=== PATIENT | female | born 1960 | race Caucasian/White ===

== ENCOUNTER 2020-02-03 17:52 | Inpatient (IN) | payer MEDICARE, OTHER, SELFPAY ==
[2020-02-03] VITALS (10 sets, daily range): BP systolic 104–158; BP diastolic 60–76; PULSE 68–103; RESP 14–31; TEMP 36.6–37.4; O2SAT 37–97; BMI 54.9
--- NOTE | 2020-02-03 17:52 | XRR_ITS ---
PROCEDURE INFORMATION: Exam: XR Chest, 1 View Exam date and time: 02/03/2020 5:54 PM Age: 59 years old Clinical indication: Patient HX: PT came in severe dyspnea; Additional info: Dyspnea, hypoxia TECHNIQUE: Imaging protocol: XR of the chest Views: 1 view. COMPARISON: No relevant prior studies available. FINDINGS: Lungs: Bilateral diffuse interstitial lung disease with evidence of early consolidation in the left lung base with associated central pulmonary hyperemia. Findings most consistent with pulmonary edema although underlying interstitial pneumonitis/pneumonia remains a differential consideration. Pleural space: Unremarkable. No radiographically visible pleural effusion. No pneumothorax. Heart/Mediastinum: Cardiomegaly. Arteriosclerosis. Bones/joints: Unremarkable as visualized. Other findings: Obesity. XR/XR chest 1V portable [id number] IMPRESSION: 1. Findings most consistent with pulmonary edema although underlying interstitial pneumonitis/pneumonia remains a differential consideration. 2. Cardiomegaly. 3. Arteriosclerosis.
--- NOTE | 2020-02-03 17:53 | ECG_ITS ---
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 Measurements Intervals [place] Rate: 131 P: 65 AL: 132 QRS: 112 QRSD: 102 T: 27 QT: 373 QTc: 551 Interpretive Statements SINUS TACHYCARDIA WITH FREQUENT VENTRICULAR PREMATURE COMPLEXES INCOMPLETE RIGHT BUNDLE BRANCH BLOCK SEPTAL MYOCARDIAL INFARCTION [40+ ms Q WAVE IN V1/V2], OF INDETERMINATE AGE No previous ECG available for comparison Electronically Signed On 02-03-2020 23:31:05 CDT by Nori Ireland M.D. [email or web address]
--- NOTE | 2020-02-03 17:58 | W.ED.SOB ---
HPI - SOB/Dyspnea General: Chief Complaint: Shortness of Breath/Dyspnea Stated Complaint: respiratory distress Time Seen by Provider: 02/03/20 17:52 Source: patient Mode of arrival: wheelchair Limitations: physical limitation (Respiratory distress) History of Present Illness: HPI Narrative: Nuha is a 59-year-old female who comes in with severe respiratory distress. She is noted to be 37% pulse ox on room air oxygen. She had labored breathing. She was immediately brought back to the room and placed on a nonrebreather then quickly converted to a BiPAP. History that I could obtain was that the patient felt she became sick today with what she thought was allergies. She does have COPD and normally wears 3 L of nasal cannula oxygen. All further history is taken from family and old charts. Review of Systems General: Reports: ROS unobtainable due to medical condition PFS ED PFSH: Medical History (Updated 02/03/20 @ 22:50 by Blossom Barahona) COPD (chronic obstructive pulmonary disease) Nocturnal hypoxemia Sleep apnea Type 2 diabetes mellitus Surgical History (Updated 02/03/20 @ 21:27 by Germaine Davies MD) History of cholecystectomy Family History (Updated 02/03/20 @ 21:27 by Germaine Davies MD) Other No significant family history Social History (Updated 02/03/20 @ 21:28 by Germaine Davies MD) Smoking and tobacco status: never smoked Alcohol intake: never Substance/Drug Use: current Substance/Drug use frequency: few times a month Substance/Drug use type: Marijuana Household members: family Housing: House Physical Exam Const: COMMON NORMALS: patient oriented x3 and alert GENERAL APPEARANCE: in distress, anxious and ill appearing NUTRITIONAL APPEARANCE: overweight HENMT: COMMON NORMALS: normocephalic, atraumatic, external ears normal, EAC's normal and Normal external nose present HEAD & SCALP: normal to inspection, normocephalic and atraumatic FACE & SINUS: normal facial exam and face symmetric NOSE: Normal external nose present and Normal nares present EXTERNAL EAR: Yes external ears normal EXTERNAL AUDITORY CANAL: EAC's normal MOUTH: Normal oral and palatal mucosa present, lip normal and tongue normal Eye: COMMON NORMALS: Equal, round and reactive pupils present and conjunctivae normal GENERAL EYE: appearance normal, both eyes and all related structures ALIGNMENT: Yes alignment normal PERIORBITAL: periorbital findings normal EYELID: eyelids normal CONJUNCTIVA: Yes conjunctivae normal SCLERA: sclerae normal PUPIL: Yes Equal, round and reactive pupils present Neck/C-Spine: COMMON NORMALS: full ROM, no lymphadenopathy, supple, no meningeal signs and no JVD GENERAL: Yes normal visual inspection and Yes trachea midline Chest: COMMONS NORMALS: normal inspection of the chest and normal palpation of entire chest wall Resp: EFFORT & INSPECTION: Yes labored, Yes grunting, Yes uses accessory muscles and Yes paradoxical thoraco-abdominal movements AUSCULTATION: rales and wheezes Cardio: COMMON NORMALS: no JVD, regular rate, regular rhythm, S1 normal heart sound present and S2 normal heart sound present RATE: regular rate RHYTHM: regular rhythm HEART SOUNDS: S1 normal heart sound present, S2 normal heart sound present, no click, no gallops, no murmurs and no rubs GI: COMMON NORMALS: Soft to palpation and No hepatosplenomegaly present PALPATION: Yes Soft to palpation, No Tenderness to palpation present (GI), No Guarding due to palpation present (GI), No Rigid due to palpation, Yes No hepatosplenomegaly present, No Hernia present, No Palpable mass present and No Pulsatile mass present : COMMON NORMALS: Yes no CVA tenderness BLADDER/KIDNEY EXAM: Yes no CVA tenderness EXTERNAL FEMALE EXAM: No Hernia present Back/Pelvis: COMMON NORMALS: no CVA tenderness, thoracic and lumbar spine normal to inspection, no thoracic nor lumbar tenderness and thoraco-lumbar ROM normal Extremity: COMMON NORMALS: normal to inspection, full ROM, capillary refill normal, no joint enlargement, no clubbing, cyanosis or edema and no calf tenderness Neuro: COMMON NORMALS: patient oriented x3, CN's II-XII intact bilaterally, moves all extremities, no focal motor deficits and no sensory deficits noted SENSORIUM/ORIENTATION: Yes alert MENINGEAL SIGNS: Yes no meningeal signs SPEECH: speech normal Skin: COMMON NORMALS: no rashes or lesions noted, turgor normal, no jaundice, no petechiae and no mottling GENERAL SKIN EXAM: no rashes or lesions noted and turgor normal Procedures Intubation Time out performed: Yes sedative: Etomidate Mg Given: 47 paralytic: Succinylcholine Mg Given: 247 Laryngoscope: fiber optic video scope ET Tube Size: 8 ET Tube Uncuffed: Yes Tube Secured Depth (cm): 24 Tube Secured Location: lips Tube Placement Confirmation: visualized tube passing through cords, equal breath sounds bilaterally, no breath sounds over epigastrium and confirmation by capnometry Patient Tolerated Procedure: well Intubation Complications: none Course Vital Signs: Vital signs: Vital Signs Temperature 97.8 F 02/03/20 17:55 Pulse Rate 77 02/03/20 22:44 Respiratory Rate 17 02/03/20 22:44 Blood Pressure 104/62 02/03/20 22:44 Pulse Oximetry 87 L 02/03/20 22:44 MDM - SOB/Dyspnea MDM Narrative: Medical decision making narrative: Patient began to tire on BiPAP. After consulting with Dr. Davies he agreed the patient would need to be intubated. She was intubated successfully and her ventilator is being run by Dr. Davies. Patient tolerated procedure well with no complications. She will be admitted to our viral ICU. Lab Data: Attestation: I reviewed the patient's lab results. Labs: Lab Results 02/03/20 02/03/20 02/03/20 Range/Units 17:50 17:53 17:53 WBC 9.9 (4.0-10.0) 10^3/ uL RBC 5.05 (4.1-5.3) 10^6/u L Hgb 13.0 (11.5-15.3) g/dL Hct 45.4 (37.0-47.0) % MCV 89.9 (81-99) fL MCH 25.7 L (28.0-34.0) pg MCHC 28.6 L (30.0-36.0) g/dL RDW 18.5 H (12.1-15.1) % Plt Count 257 (130-400) 10^3/c mm MPV 11.3 H (7.4-10.4) fL Neut % (Auto) 80.0 % Lymph % (Auto) 12.2 % [place] % (Auto) 6.9 % Eos % (Auto) 0.1 % Baso % (Auto) 0.1 % Neut # (Auto) 7.94 H (1.8-7.7) 10^3/u L Lymph # (Auto) 1.2 (0.8-4.8) 10^3/u L [place] # (Auto) 0.7 (0.2-0.9) 10^3/u L Eos # (Auto) 0.0 (0.0-0.8) 10^3/u L Baso # (Auto) 0.0 (0.0-0.1) 10^3/u L Nucleated RBC % (a uto) 0 % Nucleated RBCs # 0.0 /100WBC PT 12.60 (12.1-14.9) SECO NDS INR 0.91 (0.8-1.2) D-Dimer 3.96 H (0-0.59) ug/mIFE U Specimen Type Arterial Sample Site Radial, right ABG pH 7.28 L (7.35-7.45) ABG pCO2 45.6 H (35-45) mmHg ABG pO2 55.5 L (80.0-100.0) mmH g ABG HCO3 21.4 L (22-26) mmol/L ABG O2 Saturation 83.7 ABG Base Excess -5.4 L (-2.0-2.0) mmol/ L Francisco Javier Test Pos A-a O2 Gradient 78.9 H (5-10) mmHg Hematocrit 41.7 (37-47) % Hgb O2 Saturation 82.5 L (95-100) % Carboxyhemoglobin 0.7 (0.4-20.1) %THgb Methemoglobin 0.7 (0.4-1.5) % Total Hemoglobin 13.6 (12-16) g/dL Sodium 141.0 (131-143) mmol/L Potassium 4.9 (3.5-5.0) mmol/L Glucose 321.0 H (70-115) mg/dL Ionized Calcium 1.1 (1.1-1.4) mmol/L O2 Delivery Device Nrb FiO2 100.0 % Laboratory Specialist ID jmn Chloride (98-107) mmol/L Carbon Dioxide (22-29) mmol/L Anion Gap (5-19) BUN (8-23) mg/dL Creatinine (0.5-0.9) mg/dL GFR Calculation (90-130) mL/min Calculated Osmolal ity (285-295) mOsm/k g Lactic Acid (0.5-2.2) mmol/L Lactic Acid (Sepsi s) (0.5-2.2) mmol/L Calcium (8.5-10.5) mg/dL Magnesium (1.7-2.3) mg/dL Total Bilirubin (0.15-1.2) mg/dL AST (0-32) U/L ALT (0-33) U/L Alkaline Phosphata se (35-105) IU/L Troponin T Baselin e (0-10) ng/L Troponin T 120 Min [place] (0-10) ng/L Delta Troponin T (0-10) ABS# NT-Pro-B Natriuret Pep (0-125) pg/mL Total Protein (6.6-8.7) g/dL Albumin (3.5-5.2) g/dL Globulin (1.3-4.6) g/dL Procalcitonin (0-0.5) ng/mL Urine Color (Yellow) Urine Appearance (CLEAR) Urine pH (5-7) Ur Specific Gravit y (1.005-1.030) Urine Protein (Negative) Urine Glucose (UA) (Normal) Urine Ketones (Negative) Urine Blood (Negative) Urine Nitrate (Negative) Urine Bilirubin (Negative) Urine Urobilinogen (Negative) mg/dL Ur Leukocyte Radha ase (Negative) Urine RBC (0-2) /hpf Urine WBC (0-5) /hpf Ur Squamous Epith Cells (0-5) /hpf Amorphous Sediment /hpf Urine Bacteria (NONE) /hpf Influenza Type A A g (Negative) Influenza Type B A g (Negative) SARS-CoV-2 Ag (Rap id) (Negative) 02/03/20 02/03/20 02/03/20 Range/Units 17:53 17:53 17:53 WBC (4.0-10.0) 10^3/ uL RBC (4.1-5.3) 10^6/u L Hgb (11.5-15.3) g/dL Hct (37.0-47.0) % MCV (81-99) fL MCH (28.0-34.0) pg MCHC (30.0-36.0) g/dL RDW (12.1-15.1) % Plt Count (130-400) 10^3/c mm MPV (7.4-10.4) fL Neut % (Auto) % Lymph % (Auto) % [place] % (Auto) % Eos % (Auto) % Baso % (Auto) % Neut # (Auto) (1.8-7.7) 10^3/u L Lymph # (Auto) (0.8-4.8) 10^3/u L [place] # (Auto) (0.2-0.9) 10^3/u L Eos # (Auto) (0.0-0.8) 10^3/u L Baso # (Auto) (0.0-0.1) 10^3/u L Nucleated RBC % (a uto) % Nucleated RBCs # /100WBC PT (12.1-14.9) SECO NDS INR (0.8-1.2) D-Dimer (0-0.59) ug/mIFE U Specimen Type Sample Site ABG pH (7.35-7.45) ABG pCO2 (35-45) mmHg ABG pO2 (80.0-100.0) mmH g ABG HCO3 (22-26) mmol/L ABG O2 Saturation ABG Base Excess (-2.0-2.0) mmol/ L Francisco Javier Test A-a O2 Gradient (5-10) mmHg Hematocrit (37-47) % Hgb O2 Saturation (95-100) % Carboxyhemoglobin (0.4-20.1) %THgb Methemoglobin (0.4-1.5) % Total Hemoglobin (12-16) g/dL Sodium 136 (131-143) mmol/L Potassium 5.2 H (3.5-5.0) mmol/L Glucose 333 H (70-115) mg/dL Ionized Calcium (1.1-1.4) mmol/L O2 Delivery Device FiO2 % Laboratory Specialist ID Chloride 98 (98-107) mmol/L Carbon Dioxide 22 (22-29) mmol/L Anion Gap 21.2 H (5-19) BUN 53 H (8-23) mg/dL Creatinine 2.1 H (0.5-0.9) mg/dL GFR Calculation 23.9 L (90-130) mL/min Calculated Osmolal ity 309 H (285-295) mOsm/k g Lactic Acid 6.2 H* (0.5-2.2) mmol/L Lactic Acid (Sepsi s) (0.5-2.2) mmol/L Calcium 8.6 (8.5-10.5) mg/dL Magnesium 2.3 (1.7-2.3) mg/dL Total Bilirubin 0.2 (0.15-1.2) mg/dL AST 48 H (0-32) U/L ALT 35 H (0-33) U/L Alkaline Phosphata se 85 (35-105) IU/L Troponin T Baselin e 19 H (0-10) ng/L Troponin T 120 Min [place] (0-10) ng/L Delta Troponin T (0-10) ABS# NT-Pro-B Natriuret Pep 383 H (0-125) pg/mL Total Protein 7.4 (6.6-8.7) g/dL Albumin 3.4 L (3.5-5.2) g/dL Globulin 4.0 (1.3-4.6) g/dL Procalcitonin (0-0.5) ng/mL Urine Color (Yellow) Urine Appearance (CLEAR) Urine pH (5-7) Ur Specific Gravit y (1.005-1.030) Urine Protein (Negative) Urine Glucose (UA) (Normal) Urine Ketones (Negative) Urine Blood (Negative) Urine Nitrate (Negative) Urine Bilirubin (Negative) Urine Urobilinogen (Negative) mg/dL Ur Leukocyte Radha ase (Negative) Urine RBC (0-2) /hpf Urine WBC (0-5) /hpf Ur Squamous Epith Cells (0-5) /hpf Amorphous Sediment /hpf Urine Bacteria (NONE) /hpf Influenza Type A A g (Negative) Influenza Type B A g (Negative) SARS-CoV-2 Ag (Rap id) (Negative) 02/03/20 02/03/20 02/03/20 Range/Units 17:53 18:56 18:56 WBC (4.0-10.0) 10^3/ uL RBC (4.1-5.3) 10^6/u L Hgb (11.5-15.3) g/dL Hct (37.0-47.0) % MCV (81-99) fL MCH (28.0-34.0) pg MCHC (30.0-36.0) g/dL RDW (12.1-15.1) % Plt Count (130-400) 10^3/c mm MPV (7.4-10.4) fL Neut % (Auto) % Lymph % (Auto) % [place] % (Auto) % Eos % (Auto) % Baso % (Auto) % Neut # (Auto) (1.8-7.7) 10^3/u L Lymph # (Auto) (0.8-4.8) 10^3/u L [place] # (Auto) (0.2-0.9) 10^3/u L Eos # (Auto) (0.0-0.8) 10^3/u L Baso # (Auto) (0.0-0.1) 10^3/u L Nucleated RBC % (a uto) % Nucleated RBCs # /100WBC PT (12.1-14.9) SECO NDS INR (0.8-1.2) D-Dimer (0-0.59) ug/mIFE U Specimen Type Sample Site ABG pH (7.35-7.45) ABG pCO2 (35-45) mmHg ABG pO2 (80.0-100.0) mmH g ABG HCO3 (22-26) mmol/L ABG O2 Saturation ABG Base Excess (-2.0-2.0) mmol/ L Francisco Javier Test A-a O2 Gradient (5-10) mmHg Hematocrit (37-47) % Hgb O2 Saturation (95-100) % Carboxyhemoglobin (0.4-20.1) %THgb Methemoglobin (0.4-1.5) % Total Hemoglobin (12-16) g/dL Sodium (131-143) mmol/L Potassium (3.5-5.0) mmol/L Glucose (70-115) mg/dL Ionized Calcium (1.1-1.4) mmol/L O2 Delivery Device FiO2 % Laboratory Specialist ID Chloride (98-107) mmol/L Carbon Dioxide (22-29) mmol/L Anion Gap (5-19) BUN (8-23) mg/dL Creatinine (0.5-0.9) mg/dL GFR Calculation (90-130) mL/min Calculated Osmolal ity (285-295) mOsm/k g Lactic Acid (0.5-2.2) mmol/L Lactic Acid (Sepsi s) (0.5-2.2) mmol/L Calcium (8.5-10.5) mg/dL Magnesium (1.7-2.3) mg/dL Total Bilirubin (0.15-1.2) mg/dL AST (0-32) U/L ALT (0-33) U/L Alkaline Phosphata se (35-105) IU/L Troponin T Baselin e (0-10) ng/L Troponin T 120 Min [place] (0-10) ng/L Delta Troponin T (0-10) ABS# NT-Pro-B Natriuret Pep (0-125) pg/mL Total Protein (6.6-8.7) g/dL Albumin (3.5-5.2) g/dL Globulin (1.3-4.6) g/dL Procalcitonin 0.33 (0-0.5) ng/mL Urine Color Yellow (Yellow) Urine Appearance Cloudy (CLEAR) Urine pH 5 (5-7) Ur Specific Gravit y 1.020 (1.005-1.030) Urine Protein 1+ H (Negative) Urine Glucose (UA) Norm (Normal) Urine Ketones Negative (Negative) Urine Blood Neg (Negative) Urine Nitrate Negative (Negative) Urine Bilirubin Neg (Negative) Urine Urobilinogen Norm (Negative) mg/dL Ur Leukocyte Radha ase 1+ H (Negative) Urine RBC 0-4 H (0-2) /hpf Urine WBC 25-40 H (0-5) /hpf Ur Squamous Epith Cells 0-4 H (0-5) /hpf Amorphous Sediment 3+ /hpf Urine Bacteria 4+ H (NONE) /hpf Influenza Type A A g (Negative) Influenza Type B A g (Negative) SARS-CoV-2 Ag (Rap id) Positive H (Negative) 02/03/20 02/03/20 02/03/20 Range/Units 18:56 19:34 19:34 WBC (4.0-10.0) 10^3/ uL RBC (4.1-5.3) 10^6/u L Hgb (11.5-15.3) g/dL Hct (37.0-47.0) % MCV (81-99) fL MCH (28.0-34.0) pg MCHC (30.0-36.0) g/dL RDW (12.1-15.1) % Plt Count (130-400) 10^3/c mm MPV (7.4-10.4) fL Neut % (Auto) % Lymph % (Auto) % [place] % (Auto) % Eos % (Auto) % Baso % (Auto) % Neut # (Auto) (1.8-7.7) 10^3/u L Lymph # (Auto) (0.8-4.8) 10^3/u L [place] # (Auto) (0.2-0.9) 10^3/u L Eos # (Auto) (0.0-0.8) 10^3/u L Baso # (Auto) (0.0-0.1) 10^3/u L Nucleated RBC % (a uto) % Nucleated RBCs # /100WBC PT (12.1-14.9) SECO NDS INR (0.8-1.2) D-Dimer (0-0.59) ug/mIFE U Specimen Type Arterial Sample Site Radial, left ABG pH 7.28 L (7.35-7.45) ABG pCO2 55.5 H (35-45) mmHg ABG pO2 84.4 (80.0-100.0) mmH g ABG HCO3 26.2 H (22-26) mmol/L ABG O2 Saturation ABG Base Excess -1.5 (-2.0-2.0) mmol/ L Francisco Javier Test Pos A-a O2 Gradient (5-10) mmHg Hematocrit 41.3 (37-47) % Hgb O2 Saturation (95-100) % Carboxyhemoglobin (0.4-20.1) %THgb Methemoglobin (0.4-1.5) % Total Hemoglobin (12-16) g/dL Sodium (131-143) mmol/L Potassium (3.5-5.0) mmol/L Glucose (70-115) mg/dL Ionized Calcium (1.1-1.4) mmol/L O2 Delivery Device Bipap FiO2 85.0 % Laboratory Specialist ID Harkr Chloride (98-107) mmol/L Carbon Dioxide (22-29) mmol/L Anion Gap (5-19) BUN (8-23) mg/dL Creatinine (0.5-0.9) mg/dL GFR Calculation (90-130) mL/min Calculated Osmolal ity (285-295) mOsm/k g Lactic Acid (0.5-2.2) mmol/L Lactic Acid (Sepsi s) (0.5-2.2) mmol/L Calcium (8.5-10.5) mg/dL Magnesium (1.7-2.3) mg/dL Total Bilirubin (0.15-1.2) mg/dL AST (0-32) U/L ALT (0-33) U/L Alkaline Phosphata se (35-105) IU/L Troponin T Baselin e (0-10) ng/L Troponin T 120 Min [place] 17.88 H (0-10) ng/L Delta Troponin T -1.12 L (0-10) ABS# NT-Pro-B Natriuret Pep (0-125) pg/mL Total Protein (6.6-8.7) g/dL Albumin (3.5-5.2) g/dL Globulin (1.3-4.6) g/dL Procalcitonin (0-0.5) ng/mL Urine Color (Yellow) Urine Appearance (CLEAR) Urine pH (5-7) Ur Specific Gravit y (1.005-1.030) Urine Protein (Negative) Urine Glucose (UA) (Normal) Urine Ketones (Negative) Urine Blood (Negative) Urine Nitrate (Negative) Urine Bilirubin (Negative) Urine Urobilinogen (Negative) mg/dL Ur Leukocyte Radha ase (Negative) Urine RBC (0-2) /hpf Urine WBC (0-5) /hpf Ur Squamous Epith Cells (0-5) /hpf Amorphous Sediment /hpf Urine Bacteria (NONE) /hpf Influenza Type A A g Negative (Negative) Influenza Type B A g Negative (Negative) SARS-CoV-2 Ag (Rap id) (Negative) 02/03/20 Range/Units 19:34 WBC (4.0-10.0) 10^3/ uL RBC (4.1-5.3) 10^6/u L Hgb (11.5-15.3) g/dL Hct (37.0-47.0) % MCV (81-99) fL MCH (28.0-34.0) pg MCHC (30.0-36.0) g/dL RDW (12.1-15.1) % Plt Count (130-400) 10^3/c mm MPV (7.4-10.4) fL Neut % (Auto) % Lymph % (Auto) % [place] % (Auto) % Eos % (Auto) % Baso % (Auto) % Neut # (Auto) (1.8-7.7) 10^3/u L Lymph # (Auto) (0.8-4.8) 10^3/u L [place] # (Auto) (0.2-0.9) 10^3/u L Eos # (Auto) (0.0-0.8) 10^3/u L Baso # (Auto) (0.0-0.1) 10^3/u L Nucleated RBC % (a uto) % Nucleated RBCs # /100WBC PT (12.1-14.9) SECO NDS INR (0.8-1.2) D-Dimer (0-0.59) ug/mIFE U Specimen Type Sample Site ABG pH (7.35-7.45) ABG pCO2 (35-45) mmHg ABG pO2 (80.0-100.0) mmH g ABG HCO3 (22-26) mmol/L ABG O2 Saturation ABG Base Excess (-2.0-2.0) mmol/ L Francisco Javier Test A-a O2 Gradient (5-10) mmHg Hematocrit (37-47) % Hgb O2 Saturation (95-100) % Carboxyhemoglobin (0.4-20.1) %THgb Methemoglobin (0.4-1.5) % Total Hemoglobin (12-16) g/dL Sodium (131-143) mmol/L Potassium (3.5-5.0) mmol/L Glucose (70-115) mg/dL Ionized Calcium (1.1-1.4) mmol/L O2 Delivery Device FiO2 % Laboratory Specialist ID Chloride (98-107) mmol/L Carbon Dioxide (22-29) mmol/L Anion Gap (5-19) BUN (8-23) mg/dL Creatinine (0.5-0.9) mg/dL GFR Calculation (90-130) mL/min Calculated Osmolal ity (285-295) mOsm/k g Lactic Acid (0.5-2.2) mmol/L Lactic Acid (Sepsi s) 2.7 H (0.5-2.2) mmol/L Calcium (8.5-10.5) mg/dL Magnesium (1.7-2.3) mg/dL Total Bilirubin (0.15-1.2) mg/dL AST (0-32) U/L ALT (0-33) U/L Alkaline Phosphata se (35-105) IU/L Troponin T Baselin e (0-10) ng/L Troponin T 120 Min [place] (0-10) ng/L Delta Troponin T (0-10) ABS# NT-Pro-B Natriuret Pep (0-125) pg/mL Total Protein (6.6-8.7) g/dL Albumin (3.5-5.2) g/dL Globulin (1.3-4.6) g/dL Procalcitonin (0-0.5) ng/mL Urine Color (Yellow) Urine Appearance (CLEAR) Urine pH (5-7) Ur Specific Gravit y (1.005-1.030) Urine Protein (Negative) Urine Glucose (UA) (Normal) Urine Ketones (Negative) Urine Blood (Negative) Urine Nitrate (Negative) Urine Bilirubin (Negative) Urine Urobilinogen (Negative) mg/dL Ur Leukocyte Radha ase (Negative) Urine RBC (0-2) /hpf Urine WBC (0-5) /hpf Ur Squamous Epith Cells (0-5) /hpf Amorphous Sediment /hpf Urine Bacteria (NONE) /hpf Influenza Type A A g (Negative) Influenza Type B A g (Negative) SARS-CoV-2 Ag (Rap id) (Negative) Imaging Data^: CXR: Attestation: I personally reviewed and interpreted this imaging study as follows: My impression: Pulmonary edema versus severe viral pneumonitis CXR Post Intubation: Attestation: I personally reviewed and interpreted this imaging study as follows: My impression: ET tube with good placement. Increased aeration of the lungs. EKG Data^: EKG 1: Attestation: I personally reviewed and interpreted this EKG as follows: EKG Interpretation Date: 02/03/20 EKG interpretation time: 19:55 Interpretation: Normal sinus rhythm at 88 beats a minute, interventricular conduction delay, probable right bundle branch block, no acute ST-T wave changes. Discharge Plan Discharge Patient Disposition: Admitted As Inpatient Admit Provider: Germaine Davies Clinical Impression: Viral pneumonitis, COVID-19 virus infection Respiratory failure with hypoxia Qualifiers: Chronicity: acute Qualified Code(s): J96.01 - Acute respiratory failure with hypoxia Condition: Stable Coding Level of Care Code ED Elevator Repairer for eduardo Fwd Exam Comprehensive
[2020-02-03 18:01] LABS: ABG PCO2 45.6 mmHg (35-45); ABG PH Result 7.28 (7.35-7.45); Alveolar-Arterial Oxygen Gradi 78.9 mmHg (5-10); Arterial Blood Gas Hematocrit 41.7 % (37-47); Base Excess ABG -5.4 mmol/L (-2.0-2.0); Blood Gas Allen Test Pos; Blood Gas Sample Site Radial, right; Blood Gas Sample Type Arterial; Carboxyhemoglobin 0.7 %THgb (0.4-20.1); HCO3 ABG 21.4 mmol/L (22-26); HGB O2 Sat 82.5 % (95-100); Ionized Calcium Level - ABG 1.1 mmol/L (1.1-1.4); Methemoglobin 0.7 % (0.4-1.5); Oxygen Device NRB; Oxygen Saturation ABG 83.7; PO2 ABG 55.5 mmHg (80.0-100.0); Potassium Level - ABG 4.9 mmol/L (3.5-5.0); Total Hemoglobin 13.6 g/dL (12-16)
[2020-02-03 18:08] LABS: Basophils % 0.1 %; Eosinophils % 0.1 %; Hematocrit 45.4 % (37.0-47.0); Lymphocytes # 1.2 10^3/uL (0.8-4.8); Lymphocytes % 12.2 %; Mean Corpuscular HGB Conc 28.6 g/dL (30.0-36.0); Mean Corpuscular Hemoglobin 25.7 pg (28.0-34.0); Mean Corpuscular Volume 89.9 fL (81-99); Mean Platelet Volume 11.3 fL (7.4-10.4); Monocytes # 0.7 10^3/uL (0.2-0.9); Monocytes % 6.9 %; Neutrophils # 7.94 10^3/uL (1.8-7.7); Nucleated Red Blood Cells % 0 %; Platelet Count 257 10^3/cmm (130-400); Red Blood Count 5.05 10^6/uL (4.1-5.3); Red Cell Distribution Width 18.5 % (12.1-15.1); White Blood Count 9.9 10^3/uL (4.0-10.0)
[2020-02-03] MEDS: ipratropium-albuterol 3 mL Neb 9 ML INHALATION (18:08)
[2020-02-03 18:23] LABS: INR 0.91 (0.8-1.2)
[2020-02-03 18:26] LABS: D Dimer 3.96 ug/mIFEU (0-0.59)
[2020-02-03 18:30] LABS: Lactic Sepsis W/Reflex 6.2 mmol/L (0.5-2.2)
[2020-02-03] MEDS: dexamethasone 10 mg/mL INJ IVP (18:32)
[2020-02-03] MEDS: ondansetron 2 mg/ML SDV 2 mL 4 MG IVP (18:32)
[2020-02-03] MEDS: FUROsemide 10 mg/mL SDV 10mL 60 MG IVP (18:33)
[2020-02-03] MEDS: piperacillin-tazobactam 3.375 GM in sodium chloride 0.9% (plus) 50 ML IV (18:33)
[2020-02-03 18:37] LABS: Alanine Aminotransferase 35 U/L (0-33); Albumin Level 3.4 g/dL (3.5-5.2); Alkaline Phosphatase 85 IU/L (35-105); Blood Urea Nitrogen 53 mg/dL (8-23); Calcium 8.6 mg/dL (8.5-10.5); Carbon Dioxide 22 mmol/L (22-29); Chloride 98 mmol/L (98-107); Creatinine Clr Calc Pharmacy 44.6665; Glomerular Filtration Rate 23.9 mL/min (90-130); Glucose 333 mg/dL (65-115); Magnesium 2.3 mg/dL (1.7-2.3); NT Pro B Type Natriuretic Pept 383 pg/mL (0-125); Osmolality Calculated 309 mOsm/kg (285-295); Sodium 136 mmol/L (136-145); Total Bilirubin 0.2 mg/dL (0.15-1.2); Total Protein 7.4 g/dL (6.6-8.7)
[2020-02-03 18:38] LABS: Anion Gap 21.2 (5-19); Aspartate Amino Transferase 48 U/L (0-32); Potassium 5.2 mmol/L (3.5-5.1)
[2020-02-03 19:07] LABS: Troponin(5th) Baseline 19 ng/L (0-10)
[2020-02-03] MEDS: morphine 4 mg/mL SDV 1 mL IVP (19:24)
[2020-02-03 19:25] LABS: SARS Covid-2 Antigen Positive (Negative)
[2020-02-03] MEDS: nitroglycerin drip 50 MG/250 ML PREMIX IV (19:35)
[2020-02-03 19:46] LABS: Reflex Lactate Order REFLEX LACTIC ORDERD
[2020-02-03 19:46] LABS: ABG PCO2 55.5 mmHg (35-45); ABG PH Result 7.28 (7.35-7.45); Arterial Blood Gas Hematocrit 41.3 % (37-47); Base Excess ABG -1.5 mmol/L (-2.0-2.0); Blood Gas Allen Test Pos; Blood Gas Operator Identificat HARKR; Blood Gas Sample Site Radial, left; Blood Gas Sample Type Arterial; HCO3 ABG 26.2 mmol/L (22-26); Oxygen Device BIPAP; PO2 ABG 84.4 mmHg (80.0-100.0)
--- NOTE | 2020-02-03 19:48 | P.HP_ITS ---
Providers/Chief Complaint Chief Complaint: SOB History of Present Illness REBECCA MARTELL is a 59 year old female who carries history of type 2 diabetes, hypertension, COPD, uses oxygen 2 L at night came in with chief complaint of worsening shortness of breath. Patient is from [place], she is visiting her friend here, she moved 2 weeks ago, she started experiencing shortness of breath initially on exertion, gradually got worsened, she tried multiple inhaler regimens, her symptoms were not improving, she today she decided to come to the hospital for worsening shortness of breath at rest. She did not notice any fever, nausea, vomiting, dysuria, headache. I called her family, they are at [place], they endorsed exposure to a potential Covid family member. Diagnosis in the ER revealed COVID-19 viral pneumonia, bilateral interstitial infiltrates, extremely high D-dimer, she is not septic she has received Zosyn antibiotics in the ER, hypertensive on admission, BNP less than 400, she was saturating 37% on room air on arrival, oxygen improved with BiPAP usage, at the time my evaluation she was saturating 94% on 85% FiO2 BiPAP settings 20/10, repeat blood gases showing worsening hypercapnia, decision was made to intubate the patient, Dr. Guzman will intubate her in the ER. Review of Systems Const: Reports: chills, body aches and fatigue Eyes: Denies: change in vision ENMT: Denies: throat pain Card: Reports: dyspnea on exertion; Denies: chest pain Resp: Reports: dyspnea and non-productive cough GI: Denies: abdominal pain : Denies: flank pain Musc: Denies: neck pain Skin/Breast: Denies: rash Neuro: Denies: headache(s) Psych: Denies: anxiety Endo: Denies: polyuria Joaquín/Lymph: Denies: easy bruising All/Imm: Denies: urticaria Medications/Allergies Allergies Allergy/AdvReac Type Severity Reaction Status Date / Time No Known Allergies Allergy Verified 02/03/20 18:00 PFSH Acute PFSH: Medical History (Updated 02/03/20 @ 21:37 by Germaine Davies MD) COPD (chronic obstructive pulmonary disease) Nocturnal hypoxemia Sleep apnea Type 2 diabetes mellitus Surgical History (Updated 02/03/20 @ 21:27 by Germaine Davies MD) History of cholecystectomy Family History (Updated 02/03/20 @ 21:27 by Germaine Davies MD) Other No significant family history Social History (Updated 02/03/20 @ 21:28 by Germaine Davies MD) Smoking and tobacco status: never smoked Alcohol intake: never Substance/Drug Use: current Substance/Drug use frequency: few times a month Substance/Drug use type: Marijuana Household members: family Housing: House Vitals/I&O/Wt Last Vital Signs Temp 97.8 F 02/03/20 17:55 Pulse 84 02/03/20 18:04 Resp 31 H 02/03/20 18:04 BP 158/72 02/03/20 17:55 Pulse Ox 97 02/03/20 18:04 02/03/20 02/03/20 02/03/20 06:59 14:59 22:59 Intake Total 50 / 50 Balance 50 / 50 Weight last 48 hrs Weight 159.036 kg Physical Exam Narrative: EXAM NARRATIVE: When I entered the room patient was on BiPAP settings 20/10 FiO2 85%, she was saturating 94% Morbid obese female, appears more than stated age She was able to give me above-mentioned HPI Awake alert oriented x3 GCS 15, we talked about intubation and she made a call to her family to let them know, I updated the family and told them about the indication for intubation No neurological deficit Lower extremity nonpitting edema S1, S2 no tachycardia, has very mild signs of fluid overload Bilateral assisted breath sounds without adventitious rhonchi or crackles Skin does not show any ischemia gangrene or ulcer Patient seems drowsy but able to understand my questions no neurological deficit, awake able to protect her airway for now No acute respiratory distress Urinary Catheter Management^: Triana: Cath Placed During This Visit: yes Reason for Continuing Indwelling Catheter: Accurate Measurement of Urinary Output in Critically Ill Patients Urinary Catheter Date of Insertion: 02/03/20 Urinary Catheter Time of Insertion: 18:52 Data : 02/03/20 17:53 02/03/20 17:53 Micro: Microbiology 02/03/20 17:53 Blood Culture - Preliminary Blood SPECIMEN COLLECTED A&P Assessment and plan (1) COVID-19 determined by clinical diagnostic criteria: Status: Acute (2) Acute respiratory failure with hypoxia and hypercapnia: Status: Acute (3) On mechanically assisted ventilation: Status: Acute (4) JOVITA (acute kidney injury): Status: Acute (5) Acute exacerbation of chronic obstructive pulmonary disease (COPD): Status: Acute Additional A&P Information SARS COVID-19/viral pneumonia Bilateral interstitial infiltrate Not septic at admission, received Zosyn antibiotics in the ER Procalcitonin not high, I will hold off on antibiotics for now Start dexamethasone and remdesevir Acute hypoxic, hypercarbic respiratory failure She will be intubated in the ER because of worsening hypercapnia on BiPAP Propofol for sedation, Protonix 40 IV daily VAP prophylaxis DuoNeb every 6hr prn Family updated High inflammatory markers with D-dimer She was hypoxic 37% on room air, tachycardic, considering hypercoagulable state of Covid I would start her on heparin drip, not a candidate for CTA because of her abnormal creatinine Acute kidney injury No baseline creatinine Rule out urinary retention because of excessive antimuscarinic agent usage With place Triana catheter and monitor urine output Renal ultrasound in the morning Hyperkalemia 5.2: We will give her calcium gluconate, sample was hemolyzed Lactic acidemia secondary to severe hypoxia Lactic acid improved to 2.7 with improvement in hypoxemia I am not suspecting sepsis at this point, she is afebrile no leukocytosis or leukopenia Right-sided congestive heart failure Abnormal transaminases with JOVITA most likely related to congestion Clinically does not look fluid overloaded, I will hold off on Lasix for now, BNP 383, considering high BMI I would not rely solely on BNP Acute COPD exacerbation secondary to Covid pneumonia Requiring mechanical ventilation History of sleep apnea, uses 2 L of oxygen at night Full code Family updated DVT prophylaxis not indicated currently I am starting heparin drip for concern of PE N.p.o. Attestations Medical Necessity Statement*: Anticipating stay in the hospital cross more than 2 midnights currently need mechanical ventilation for acute hypoxic hypercarbic respiratory failure Time Spent in Patient Care: (>than 50% of time spent in counselling and/or dir ect pt care on unit) . 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
[2020-02-03 19:53] LABS: Bilirubin Urine Neg (Negative); Blood Urine Neg (Negative); Glucose Urine UA Norm (Normal); Ketones Urine Negative (Negative); Leukocyte Esterase Urine 1+ (Negative); Nitrate Urine Negative (Negative); Protein Urine 1+ (Negative); Urine Appearance Cloudy (CLEAR); Urine Color Yellow (Yellow); Urobilinogen Urine Norm (Negative); pH Urine 5 (5-7)
--- NOTE | 2020-02-03 19:53 | ECG_ITS ---
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 Measurements Intervals Sherman Rate: 82 P: 50 RI: 159 QRS: 118 QRSD: 107 T: 79 QT: 392 QTc: 458 Interpretive Statements SINUS RHYTHM POSSIBLE RIGHT VENTRICULAR HYPERTROPHY SEPTAL MYOCARDIAL INFARCTION [40+ ms Q WAVE IN V1/V2], OF INDETERMINATE AGE Compared to ECG 02/03/2020 17:50:24 Sinus tachycardia no longer present Ventricular premature complex(es) no longer present Incomplete right bundle-branch block no longer present Myocardial infarct finding still present Electronically Signed On 02-03-2020 23:37:23 CDT by Nori Ireland M.D. [id number]
[2020-02-03 19:54] LABS: Amorphous Sediment Urine 3+ /hpf; Bacteria Urine 4+ /hpf
[2020-02-03 19:55] LABS: Squamous Epithelial Cell Urine 0-4 /hpf (0-5)
[2020-02-03 19:56] LABS: Add Urine Culture? Yes; RBC Urine 0-4 /hpf (0-2); WBC Urine 25-40 /hpf (0-5)
[2020-02-03 20:02] LABS: Influenza A by IFA Negative (Negative)
[2020-02-03 20:03] LABS: Influenza B by IFA Negative (Negative)
[2020-02-03 20:14] LABS: Troponin 5 2HR 17.88 ng/L (0-10); Troponin 5 2HR Delta -1.12 ABS# (0-10)
[2020-02-03 20:15] LABS: Lactic Acid level (Lactate) 2.7 mmol/L (0.5-2.2)
[2020-02-03 20:29] LABS: Procalcitonin 0.33 ng/mL (0-0.5)
[2020-02-03 21:10] LABS: ABG PCO2 57.2 mmHg (35-45); ABG PH Result 7.29 (7.35-7.45); Arterial Blood Gas Hematocrit 41.9 % (37-47); Base Excess ABG -0.2 mmol/L (-2.0-2.0); Blood Gas Allen Test Pos; Blood Gas Operator Identificat HARKR; Blood Gas Sample Site Radial, left; Blood Gas Sample Type Arterial; HCO3 ABG 27.5 mmol/L (22-26); Oxygen Device BIPAP; PO2 ABG 84.1 mmHg (80.0-100.0)
--- NOTE | 2020-02-03 21:31 | XRR_ITS ---
PROCEDURE INFORMATION: Exam: XR Chest, 1 View Exam date and time: 02/03/2020 9:32 PM Age: 59 years old Clinical indication: Device placement; Ett placement (vent status); Additional info: Et tube covid + TECHNIQUE: Imaging protocol: XR of the chest Views: 1 view. COMPARISON: CR XR chest 1V portable [id number] 02/03/2020 5:51 PM FINDINGS: Tubes, catheters and devices: Endotracheal tube in satisfactory position tip above the ira. EKG leads. Lungs: Deterioration cardiopulmonary status of pulmonary edema with central pulmonary hyperemia. Cannot exclude coexistent pneumonitis/pneumonia. Pleural space: No visible pleural effusion. No visible pneumothorax. Heart/Mediastinum: Cardiomegaly. Arteriosclerosis. Bones/joints: Unremarkable. XR/XR chest 1V [id number] IMPRESSION: 1. Endotracheal tube in satisfactory position tip above the ira. 2. Deterioration cardiopulmonary status of suspected pulmonary edema.
[2020-02-03] MEDS: succinylcholine 20 mg/mL SDV 10mL 238 MG IVP (21:35)
[2020-02-03] MEDS: vecuronium 10 mg SDV 15 MG IVP (21:40)
[2020-02-03] MEDS: LORazepam 2 mg/mL INJ 1 mL IVP (21:40)
[2020-02-03] MEDS: propofol 1,000 MG/100 ML INJ 9.5 MG IV (21:50)
--- NOTE | 2020-02-03 22:13 | PC.NURSE ---
This RN along with charge nurse and MD, and RT, patient was intubated with 8.0 tube at 24 lips, 18Fr OG placed, IV sedation drips started, patient is comfortable at this time, patient already had Triana and 2 IVs placed, patient on monitor, VS unstable at this time, will continue to monitor
[2020-02-03 22:18] LABS: ABG PH Result 7.25 (7.35-7.45); Arterial Blood Gas Hematocrit 42.6 % (37-47); Base Excess ABG -1.9 mmol/L (-2.0-2.0); Blood Gas Allen Test Pos; Blood Gas Operator Identificat HARKR; Blood Gas Sample Site Radial, right; Blood Gas Sample Type Arterial; Blood Gas Tidal Volume 0.51; HCO3 ABG 26.7 mmol/L (22-26); Oxygen Device VENT; PO2 ABG 58.5 mmHg (80.0-100.0)
[2020-02-03 23:50] LABS: ABG PCO2 61.7 mmHg (35-45)
[2020-02-04] VITALS (27 sets, daily range): BP systolic 103–134; BP diastolic 56–81; PULSE 75–97; RESP 16–28; TEMP 35.7–37.8; O2SAT 87–99
[2020-02-04 00:42] LABS: Troponin 5 6HR 17.56 ng/L (0-10)
[2020-02-04 00:46] LABS: Troponin 5 6HR Delta -1.44 ng/L (0-12)
[2020-02-04 00:55] LABS: ABG PCO2 52.5 mmHg (35-45); ABG PH Result 7.32 (7.35-7.45); Alveolar-Arterial Oxygen Gradi 74.5 mmHg (5-10); Arterial Blood Gas Hematocrit 41.7 % (37-47); Base Excess ABG -0.2 mmol/L (-2.0-2.0); Blood Gas Sample Site Radial, right; Blood Gas Sample Type Arterial; Carboxyhemoglobin 0.2 %THgb (0.4-20.1); HCO3 ABG 26.8 mmol/L (22-26); HGB O2 Sat 93.6 % (95-100); Ionized Calcium Level - ABG 1.1 mmol/L (1.1-1.4); Methemoglobin 0.7 % (0.4-1.5); Oxygen Device VENT; Oxygen Saturation ABG 94.4; PO2 ABG 81.9 mmHg (80.0-100.0); Potassium Level - ABG 6.7 mmol/L (3.5-5.0); Total Hemoglobin 13.6 g/dL (12-16)
--- NOTE | 2020-02-04 00:58 | USCV_ITS ---
REBECCA MARTELL Age: 59 Gender: F : 1960 Exam Date: 02/04/2020 13:05 Ordering Phys: Germaine Davies MD Technologist: Krista Chu [place] [facility] [place]: Acute CHF exacerbation BP: 104 / 62 HR: 92 Rhythm: Sinus Technical Quality: Poor because of body habitus MEASUREMENTS (Male / Female) Normal Values 2D ECHO LV Diastolic Diameter PLAX 4.2 cm 4.2 - 5.9 / 3.9 - 5.3 cm LV Systolic Diameter PLAX 2.7 cm LV Chamber Size 4.1 cm IVS Diastolic Thickness 1.5 cm 0.6 - 1.0 / 0.6 - 0.9 cm IVS Systolic Thickness 2.0 cm LVPW Diastolic Thickness 1.4 cm 0.6 - 1.0 / 0.6 - 0.9 cm LVPW Systolic Thickness 2.1 cm RV Chamber Size 3.8 cm LV Ejection Fraction 2D Teich 65.3 % LA Width 3.1 cm LA Height 6.1 cm RA Width 2.7 cm RA Height 4.5 cm M-MODE LV Diastolic Diameter MM 4.5 cm 4.2 - 5.9 / 3.9 - 5.3 cm LV Systolic Diameter MM 2.7 cm LV Ejection Fraction MM Teich 70.9 % IVS Diastolic Thickness MM 1.4 cm 0.6 - 1.0 / 0.6 - 0.9 cm IVS Systolic Thickness MM 1.8 cm LVPW Diastolic Thickness MM 1.4 cm 0.6 - 1.0 / 0.6 - 0.9 cm LVPW Systolic Thickness MM 1.7 cm FINDINGS Left Ventricle Normal left ventricular size and systolic function, EF 65%. No regional wall motion abnormalities. Right Ventricle Mildly dilated right ventricle with normal ejection fraction Right Atrium The right atrium is normal in size. Left Atrium The left atrium is normal in size. Mitral Valve Mild mitral annular calcification. Thickened mitral valve. Aortic Valve Thickened aortic valve. Tricuspid Valve Not visualized well Pulmonic Valve Pulmonic valve not well visualized. Pericardium Normal pericardium without effusion. Aorta Normal ascending aorta dimension. CONCLUSIONS Normal left ventricular size and systolic function, EF 65%. No regional wall motion abnormalities. Mild mitral annular calcification. Thickened mitral valve. Thickened aortic valve. There is no pericardial effusion. There are no intracardiac masses. No previous study is available for comparison. Technically difficult study because of poor apical window Dr Farrah Viramontes MD FACC (Electronically Signed) Final Date: 04 February 2020 14:34 S
--- NOTE | 2020-02-04 01:00 | PC.NURSE ---
Fentanyl wasted Patient arrived to VICU from ED with a Fentanyl drip infusing. After reviewing chart, patient's fentanyl drip had been discontinued. Fentanyl from tubing and bag were wasted per protocol, totaling 2750mcg. Trinity Lanier LPN, witnessed waste with me. Kitty Cotto RN
[2020-02-04] MEDS: FUROsemide 10 mg/mL SDV 4mL 40 MG IVP (01:43)
[2020-02-04] MEDS: dexamethasone 4 mg/mL INJ 6 MG IVP (01:43)
[2020-02-04] MEDS: heparin 5,000 unit/mL INJ 1 mL IV (02:27)
[2020-02-04] MEDS: heparin drip 25,000 UNIT/500 ML PREMIX 36 UNIT IV (02:28)
[2020-02-04 02:36] LABS: Procalcitonin 0.34 ng/mL (0-0.5)
[2020-02-04] MEDS: propofol 1,000 MG/100 ML INJ 38.2 MG IV ×3 (03:58→23:28)
[2020-02-04 04:06] LABS: Glucose Point of Care 289 mg/dL (70-110)
[2020-02-04 04:47] LABS: ABG PCO2 51.7 mmHg (35-45); ABG PH Result 7.33 (7.35-7.45); Arterial Blood Gas Hematocrit 42.3 % (37-47); Base Excess ABG 0.5 mmol/L (-2.0-2.0); Blood Gas Sample Site Radial, right; Blood Gas Sample Type Arterial; HCO3 ABG 27.3 mmol/L (22-26); Oxygen Device VENT
[2020-02-04 05:01] LABS: Basophils % 0.1 %; Hematocrit 45.1 % (37.0-47.0); Hemoglobin 13.2 g/dL (11.5-15.3); Lymphocytes # 0.6 10^3/uL (0.8-4.8); Lymphocytes % 8.8 %; Mean Corpuscular HGB Conc 29.3 g/dL (30.0-36.0); Mean Corpuscular Hemoglobin 25.5 pg (28.0-34.0); Mean Corpuscular Volume 87.1 fL (81-99); Mean Platelet Volume 11.1 fL (7.4-10.4); Monocytes # 0.3 10^3/uL (0.2-0.9); Monocytes % 4.5 %; Neutrophils % 85.6 %; Nucleated Red Blood Cells % 0 %; Platelet Count 252 10^3/cmm (130-400); Red Blood Count 5.18 10^6/uL (4.1-5.3); Red Cell Distribution Width 18.1 % (12.1-15.1); White Blood Count 7.1 10^3/uL (4.0-10.0)
[2020-02-04 05:31] LABS: Lactate (Lactic Acid level) 1.1 mmol/L (0.5-2.2)
[2020-02-04 05:34] LABS: Fibrinogen 720 mg/dL (174-498)
[2020-02-04 05:39] LABS: Lactate Dehydrogenase 656 U/L (135-214)
[2020-02-04] MEDS: propofol 1,000 MG/100 ML INJ 47.7 MG IV (06:00)
--- NOTE | 2020-02-04 06:11 | PC.NURSE ---
Shift Events: Patient admitted from ED, intubated and sedated. Patient went into respiratory distress in ED and after failing BiPap was intubated in the ED. Patient arrived to VICU with an SpO2 of 87% on 100% FiO2. After turning patient onto her left side, SpO2 increased to 95%. Was able to gradually wean patient down to 80% but had to go back up to 100% FiO2 after bath. Propped patient onto her left side again and is SpO2 once again increased. Interdry placed in folds, Triana and makeda care completed with bath. Calcium gluconate given x [address] Davies notified of blood glucose of 313 and orders received for a one time dose of Novolog of 15 units. Patient follows commands and opens eyes to name. Unable to achieve any other orientation. Patient is in bilateral wrist restraints and has remained free of harm and injury all shift. All other VSS.
[2020-02-04 06:48] LABS: Glucose Point of Care 263 mg/dL (70-110)
[2020-02-04 07:01] LABS: Alanine Aminotransferase 36 U/L (0-33); Albumin Level 3.4 g/dL (3.5-5.2); Alkaline Phosphatase 87 IU/L (35-105); Anion Gap 18.7 (5-19); Aspartate Amino Transferase 53 U/L (0-32); Blood Urea Nitrogen 53 mg/dL (8-23); Calcium 8.8 mg/dL (8.5-10.5); Carbon Dioxide 23 mmol/L (22-29); Chloride 101 mmol/L (98-107); Globulin 3.6 g/dL (1.3-4.6); Glomerular Filtration Rate 25.3 mL/min (90-130); Glucose 340 mg/dL (65-115); Osmolality Calculated 312 mOsm/kg (285-295); Potassium 5.7 mmol/L (3.5-5.1); Sodium 137 mmol/L (136-145); Total Bilirubin 0.3 mg/dL (0.15-1.2)
[2020-02-04] MEDS: ipratropium-albuterol 3 mL Neb INHALATION ×3 (08:25→20:21)
[2020-02-04] MEDS: propofol 1,000 MG/100 ML INJ 42.9 MG IV (08:58)
[2020-02-04 09:32] LABS: Partial Thromboplastin Time 72.6 SECONDS (23.9-36.7)
[2020-02-04 11:36] LABS: Glucose Point of Care 229 mg/dL (70-110)
[2020-02-04] MEDS: pantoprazole 40 mg SDV IVP ×2 (12:22→23:30)
[2020-02-04] MEDS: FUROsemide 10 mg/mL SDV 4mL 60 MG IVP (12:23)
[2020-02-04] MEDS: piperacillin-tazobactam 3.375 GM in sodium chloride 0.9% (plus) 50 ML IV ×2 (12:23→21:09)
--- NOTE | 2020-02-04 12:33 | P.PN_ITS ---
Subjective Subjective: Interval history: Raisa is intubated and sedated. History and physical reviewed. Medications: Reviewed: Yes Vitals/I&O/Wt Last Vital Signs Temp 96.2 F L 02/04/20 01:45 Pulse 85 02/04/20 08:00 Resp 20 H 02/04/20 09:29 BP 104/62 02/03/20 22:57 Pulse Ox 95 02/04/20 08:00 02/03/20 02/04/20 02/04/20 22:59 06:59 14:59 Intake Total 50 / 50 135.940 / 185.940 100 / 100 Output Total 1475 / 1475 Balance 50 / 50 -1339.060 / -1289.060 100 / 100 Weight last 48 hrs Weight 159.036 kg Physical Exam Narrative: EXAM NARRATIVE: General exam is no apparent distress Cardiovascular regular rate and rhythm Lungs diminished breath sounds bilaterally no wheezing Abdomen is obese. Extremities no cyanosis clubbing. 1+ edema. Urinary Catheter Management^: Triana: Cath Placed During This Visit: yes Reason for Continuing Indwelling Catheter: Accurate Measurement of Urinary Output in Critically Ill Patients Urinary Catheter Date of Insertion: 02/03/20 Urinary Catheter Time of Insertion: 20:00 Data : 02/04/20 04:30 02/04/20 04:30 Micro: Microbiology 02/03/20 17:53 Blood Culture - Preliminary Blood Gram positive cocci 02/04/20 06:40 Bacterial Antigens - Final Urine,Clean Catch 02/04/20 06:40 Legionella Urinary Antigen - Final Urine Catheterized 02/03/20 19:34 Blood Culture - Preliminary Blood SPECIMEN COLLECTED A&P Assessment and plan (1) COVID-19 determined by clinical diagnostic criteria: Rapid Covid positive. Currently on pressure control ventilation, pressure support of 12, PEEP of 12, FiO2 100%, respiratory rate 16. Oxygen saturation 88 to 90% currently. Prognosis extremely guarded Continue remdesivir, dexamethasone Placed on linezolid, Zosyn at this point for concern of concomitant bacterial infection although pro calcitonin is not elevated. Status: Acute (2) Acute respiratory failure with hypoxia and hypercapnia: Requiring significant ventilatory support currently. We do not have pulmonary critical care this weekend, so I have discussed this with the family and they have directed me to try to transfer out to another facility Status: Acute (3) On mechanically assisted ventilation: Propofol for sedation. Status: Acute (4) JOVITA (acute kidney injury): With history of underlying chronic kidney disease, unknown baseline Triana, to monitor output Status: Acute (5) Acute exacerbation of chronic obstructive pulmonary disease (COPD): Continue dexamethasone Nebs Status: Acute Additional A&P Information Hyperkalemia. Kayexalate will be given now x1 Possible UTI. Zosyn will suffice for treatment of this. Elevated D-dimer. Not candidate for CTA secondary to creatinine, and possibly weight. Full dose anticoagulation with heparin currently. NG heme positive. Protonix 40 mg IV every 12 hours Possible CHF. BNP 383. Secondary to severe respiratory status issues will give Lasix 60 mg IV now, and monitor for any improvement of respiratory condition Possible acute COPD exacerbation. Continue dexamethasone, nebs History of obstructive sleep apnea Morbid obesity Full code Heparin will suffice for DVT prophylaxis Attestations Medical Necessity Statement*: Needs continued hospitalization secondary to COVID-19 pneumonia, requiring endotracheal intubation and ventilation Critical Care Time: 59 minutes spent in critical care time at bedside reviewing ventilator settings in this patient with multiorgan dysfunction secondary to COVID-19 pneumonia and high risk for morbidity and mortality. Coding Level of Care Code Acute Lead Consultant for [facility] Fwd Diagnoses COVID-19 determined by clinical diagnostic criteria U07.1 Acute respiratory failure with hypoxia and hypercapnia J96.01; J96.02 On mechanically assisted ventilation Z99.11 JOVITA (acute kidney injury) N17.9 Acute exacerbation of chronic obstructive pulmonary disease (COPD) J44.1
[2020-02-04] MEDS: linezolid premix 600 MG/300 ML PREMIX 300 MG IV (12:35)
[2020-02-04] MEDS: sodium polystyrene sulfonate 15 gm/60 mL Btl 30 GM OG-TUBE (13:05)
[2020-02-04 15:20] LABS: Partial Thromboplastin Time 99.3 SECONDS (23.9-36.7)
[2020-02-04] MEDS: propofol 1,000 MG/100 ML INJ 40.1 MG IV ×3 (15:50→17:39)
--- NOTE | 2020-02-04 16:06 | P.TS_ITS ---
Transfer Summary Providers Date of Admission: 02/03/20 19:55 Date of Discharge: 02/04/20 Attending Provider at Admission: Germaine Davies MD Attending Provider at Transfer: Reji Patel MD Anticipated Date of Transfer: Anticipated date of transfer: 02/04/20 Receiving Facility & Provider: Receiving Provider: [Dr Cotter] Receiving facility: [[facility]] Diagnoses at Discharge Discharge Diagnosis (1) COVID-19 determined by clinical diagnostic criteria: Status: Acute Problem details: To pneumonia, requiring maximum ventilatory support (2) Acute respiratory failure with hypoxia and hypercapnia: Status: Acute (3) On mechanically assisted ventilation: Status: Acute (4) JOVITA (acute kidney injury): Status: Acute Problem details: With history of underlying chronic kidney disease (5) Acute exacerbation of chronic obstructive pulmonary disease (COPD): Status: Acute Reason for Visit Reason for Visit: SOB Hospital Course Hospital Course: Raisa presented to the hospital on February 02, with significant respiratory failure, hypercapnia, and hypoxia. Exact duration of symptoms was unclear. She had a history of Covid exposure. She has a past medical history of obesity, chronic kidney disease, COPD, obstructive sleep apnea. Troponin and BNP in the emergency department room were slightly elevated. Creatinine was 2.1. Inflammatory markers were elevated, and mild transaminitis was present. Urine was equivocal for UTI. In the emergency department she was trialed on BiPAP, and failed so was intubated. Her rapid Covid test was positive. She was given IV antibiotics broad-spectrum. She was given remdesivir, dexamethasone, pulmonary toilet. Secondary to dimer elevation full dose anticoagulation with heparin. She was somewhat hyperkalemic so calcium was given. Following this, she required escalation of her initial ventilatory settings to where she was on pressure control with a pressure support of 12, PEEP of 12, FiO2 of 100%, plateau pressures of 24, and peak inspiratory pressures of 30 with an oxygen saturation of 88 to 90%. Broad- spectrum antibiotics were continued as was steroid and antiviral. Heparin drip was continued. Some small amount of blood noted in NG so Protonix was initiated. Lasix IV was given to try to improve respiratory status. Secondary to maximum ventilatory support being given, and no pulmonary critical care availability this weekend, decision was made to transfer the patient to a higher level of care. [facility] graciously accepted her care and she was transferred. Other studies done while in the hospital included a limited echocardiogram which demonstrated a preserved EF of 65%, no regional wall motion abnormalities. Physical Exam Narrative: EXAM NARRATIVE: General exam is a sedated female HEENT oropharynx with endotracheal tube Neck supple Cardiovascular regular rate and rhythm Lungs diminished breath sounds bilaterally but no wheezing Abdomen is obese soft positive bowel sounds Extremities trace edema Skin no rash but venous stasis changes present Neuro: Sedated Urinary Catheter Management^: Triana: Cath Placed During This Visit: yes Reason for Continuing Indwelling Catheter: Accurate Measurement of Urinary Output in Critically Ill Patients Urinary Catheter Date of Insertion: 02/03/20 Urinary Catheter Time of Insertion: 20:00 TS Data Data Completed and Pending: Completed Studies During Hospitalization Category Date Time Status XR chest 1V [id number] Routine Exams 02/03/20 21:31 Completed XR chest 1V benny ble [id number] Stat Exams 02/03/20 17:52 Completed CV echo limited 9 [id number] Routine Ultrasound 02/04/20 00:58 Completed Pending at discharge Category Date Time Status Blood Culture Sta t Lab 02/03/20 19:34 Results Blood Culture Sta t Lab 02/04/20 13:50 Results C Reactive Protei n AM LABS Lab 02/05/20 04:00 Ordered Complete Blood Co unt w/Auto AM LABS Lab 02/05/20 04:00 Ordered Comprehensive Met abolic Panel AM LA BS Lab 02/05/20 04:00 Ordered D Dimer AM LABS Lab 02/05/20 04:00 Ordered Ferritin AM LABS Lab 02/05/20 04:00 Ordered PTT [Partial Thro mboplastin Time] R outine Lab 02/04/20 22:00 Uncollected Platelet Count Q2 D Lab 02/05/20 04:00 Ordered Platelet Count Q2 D Lab 02/07/20 04:00 Ordered Urine Culture Sta t Lab 02/03/20 18:56 Received Labs from last 24 hours 02/04/20 02/04/20 02/04/20 13:50 11:26 08:30 WBC RBC Hgb Hct MCV MCH MCHC RDW Plt Count MPV Neut % (Auto) Lymph % (Auto) [place] % (Auto) Eos % (Auto) Baso % (Auto) Neut # (Auto) Lymph # (Auto) [place] # (Auto) Eos # (Auto) Baso # (Auto) Nucleated RBC % (a uto) Nucleated RBCs # PT INR APTT 99.3 H 72.6 H Fibrinogen D-Dimer Specimen Type Sample Site ABG pH ABG pCO2 ABG pO2 ABG HCO3 ABG O2 Saturation ABG Base Excess Francisco Javier Test A-a O2 Gradient Hematocrit Hgb O2 Saturation Carboxyhemoglobin Methemoglobin Total Hemoglobin Sodium Potassium Glucose Ionized Calcium O2 Delivery Device Mechanical Rate FiO2 Tidal Volume PEEP Needle Loom Setter ID Chloride Carbon Dioxide Anion Gap BUN Creatinine GFR Calculation POC Glucose 229 Calculated Osmolal ity Lactic Acid Lactic Acid (Sepsi s) Lactate Calcium Magnesium Total Bilirubin AST ALT Alkaline Phosphata se Lactate Dehydrogen ase Troponin T Baselin e Troponin T 120 Min yocha dehe Delta Troponin T Troponin T Hi Sens 6Hr Troponin T Hi Sens 6Hr Delta C-Reactive Protein NT-Pro-B Natriuret Pep Total Protein Albumin Globulin Procalcitonin Urine Color Urine Appearance Urine pH Ur Specific Gravit y Urine Protein Urine Glucose (UA) Urine Ketones Urine Blood Urine Nitrate Urine Bilirubin Urine Urobilinogen Ur Leukocyte Radha ase Urine RBC Urine WBC Ur Squamous Epith Cells Amorphous Sediment Urine Bacteria Influenza Type A A g Influenza Type B A g SARS-CoV-2 Ag (Rap id) 02/04/20 02/04/20 02/04/20 06:21 04:30 04:30 WBC RBC Hgb Hct MCV MCH MCHC RDW Plt Count MPV Neut % (Auto) Lymph % (Auto) [place] % (Auto) Eos % (Auto) Baso % (Auto) Neut # (Auto) Lymph # (Auto) [place] # (Auto) Eos # (Auto) Baso # (Auto) Nucleated RBC % (a uto) Nucleated RBCs # PT INR APTT Fibrinogen D-Dimer Specimen Type Arterial Sample Site Radial, right ABG pH 7.33 L ABG pCO2 51.7 H ABG pO2 66.0 L ABG HCO3 27.3 H ABG O2 Saturation ABG Base Excess 0.5 Francisco Javier Test N/a A-a O2 Gradient Hematocrit 42.3 Hgb O2 Saturation Carboxyhemoglobin Methemoglobin Total Hemoglobin Sodium 137 Potassium 5.7 H Glucose 340 H Ionized Calcium O2 Delivery Device Vent Mechanical Rate FiO2 80.0 Tidal Volume PEEP 10.0 Needle Loom Setter ID [id number] Chloride 101 Carbon Dioxide 23 Anion Gap 18.7 BUN 53 H Creatinine 2.0 H GFR Calculation 25.3 L POC Glucose 263 Calculated Osmolal ity 312 H Lactic Acid Lactic Acid (Sepsi s) Lactate Calcium 8.8 Magnesium Total Bilirubin 0.3 AST 53 H ALT 36 H Alkaline Phosphata se 87 Lactate Dehydrogen ase Troponin T Baselin e Troponin T 120 Min yocha dehe Delta Troponin T Troponin T Hi Sens 6Hr Troponin T Hi Sens 6Hr Delta C-Reactive Protein NT-Pro-B Natriuret Pep Total Protein 7.0 Albumin 3.4 L Globulin 3.6 Procalcitonin Urine Color Urine Appearance Urine pH Ur Specific Gravit y Urine Protein Urine Glucose (UA) Urine Ketones Urine Blood Urine Nitrate Urine Bilirubin Urine Urobilinogen Ur Leukocyte Radha ase Urine RBC Urine WBC Ur Squamous Epith Cells Amorphous Sediment Urine Bacteria Influenza Type A A g Influenza Type B A g SARS-CoV-2 Ag (Rap id) 02/04/20 02/04/20 02/04/20 04:30 04:30 04:30 WBC RBC Hgb Hct MCV MCH MCHC RDW Plt Count MPV Neut % (Auto) Lymph % (Auto) [place] % (Auto) Eos % (Auto) Baso % (Auto) Neut # (Auto) Lymph # (Auto) [place] # (Auto) Eos # (Auto) Baso # (Auto) Nucleated RBC % (a uto) Nucleated RBCs # PT INR APTT Fibrinogen 720 H D-Dimer Specimen Type Sample Site ABG pH ABG pCO2 ABG pO2 ABG HCO3 ABG O2 Saturation ABG Base Excess Francisco Javier Test A-a O2 Gradient Hematocrit Hgb O2 Saturation Carboxyhemoglobin Methemoglobin Total Hemoglobin Sodium Potassium Glucose Ionized Calcium O2 Delivery Device Mechanical Rate FiO2 Tidal Volume PEEP Needle Loom Setter ID Chloride Carbon Dioxide Anion Gap BUN Creatinine GFR Calculation POC Glucose Calculated Osmolal ity Lactic Acid Lactic Acid (Sepsi s) Lactate 1.1 Calcium Magnesium Total Bilirubin AST ALT Alkaline Phosphata se Lactate Dehydrogen ase 656 H Troponin T Baselin e Troponin T 120 Min [place] dehe Delta Troponin T Troponin T Hi Sens 6Hr Troponin T Hi Sens 6Hr Delta C-Reactive Protein NT-Pro-B Natriuret Pep Total Protein Albumin Globulin Procalcitonin Urine Color Urine Appearance Urine pH Ur Specific Gravit y Urine Protein Urine Glucose (UA) Urine Ketones Urine Blood Urine Nitrate Urine Bilirubin Urine Urobilinogen Ur Leukocyte Radha ase Urine RBC Urine WBC Ur Squamous Epith Cells Amorphous Sediment Urine Bacteria Influenza Type A A g Influenza Type B A g SARS-CoV-2 Ag (Rap id) 02/04/20 02/04/20 02/04/20 04:30 04:30 04:02 WBC 7.1 RBC 5.18 Hgb 13.2 Hct 45.1 MCV 87.1 MCH 25.5 L MCHC 29.3 L RDW 18.1 H Plt Count 252 MPV 11.1 H Neut % (Auto) 85.6 Lymph % (Auto) 8.8 [place] % (Auto) 4.5 Eos % (Auto) 0.0 Baso % (Auto) 0.1 Neut # (Auto) 6.10 Lymph # (Auto) 0.6 L [place] # (Auto) 0.3 Eos # (Auto) 0.0 Baso # (Auto) 0.0 Nucleated RBC % (a uto) 0 Nucleated RBCs # 0.0 PT INR APTT Fibrinogen D-Dimer Specimen Type Sample Site ABG pH ABG pCO2 ABG pO2 ABG HCO3 ABG O2 Saturation ABG Base Excess Francisco Javier Test A-a O2 Gradient Hematocrit Hgb O2 Saturation Carboxyhemoglobin Methemoglobin Total Hemoglobin Sodium Potassium Glucose Ionized Calcium O2 Delivery Device Mechanical Rate FiO2 Tidal Volume PEEP Needle Loom Setter ID Chloride Carbon Dioxide Anion Gap BUN Creatinine GFR Calculation POC Glucose 289 Calculated Osmolal ity Lactic Acid Lactic Acid (Sepsi s) Lactate Calcium Magnesium Total Bilirubin AST ALT Alkaline Phosphata se Lactate Dehydrogen ase Troponin T Baselin e Troponin T 120 Min y[place] dehe Delta Troponin T Troponin T Hi Sens 6Hr Troponin T Hi Sens 6Hr Delta C-Reactive Protein 236.0 H NT-Pro-B Natriuret Pep Total Protein Albumin Globulin Procalcitonin Urine Color Urine Appearance Urine pH Ur Specific Gravit y Urine Protein Urine Glucose (UA) Urine Ketones Urine Blood Urine Nitrate Urine Bilirubin Urine Urobilinogen Ur Leukocyte Radha ase Urine RBC Urine WBC Ur Squamous Epith Cells Amorphous Sediment Urine Bacteria Influenza Type A A g Influenza Type B A g SARS-CoV-2 Ag (Rap id) 02/04/20 02/03/20 02/03/20 00:43 21:57 20:58 WBC RBC Hgb Hct MCV MCH MCHC RDW Plt Count MPV Neut % (Auto) Lymph % (Auto) [place] % (Auto) Eos % (Auto) Baso % (Auto) Neut # (Auto) Lymph # (Auto) [place] # (Auto) Eos # (Auto) Baso # (Auto) Nucleated RBC % (a uto) Nucleated RBCs # PT INR APTT Fibrinogen D-Dimer Specimen Type Arterial Arterial Arterial Sample Site Radial, right Radial, right Radial, left ABG pH 7.32 L 7.25 L 7.29 L ABG pCO2 52.5 H 61.7 H* 57.2 H ABG pO2 81.9 58.5 L 84.1 ABG HCO3 26.8 H 26.7 H 27.5 H ABG O2 Saturation 94.4 ABG Base Excess -0.2 -1.9 -0.2 Francisco Javier Test N/a Pos Pos A-a O2 Gradient 74.5 H Hematocrit 41.7 42.6 41.9 Hgb O2 Saturation 93.6 L Carboxyhemoglobin 0.2 L Methemoglobin 0.7 Total Hemoglobin 13.6 Sodium 139.0 Potassium 6.7 H Glucose 313.0 H Ionized Calcium 1.1 O2 Delivery Device Vent Vent Bipap Mechanical Rate 12.0 FiO2 100.0 100.0 85.0 Tidal Volume 0.51 PEEP 10.0 10.0 Needle Loom Setter ID [id number] Harkr Harkr Chloride Carbon Dioxide Anion Gap BUN Creatinine GFR Calculation POC Glucose Calculated Osmolal ity Lactic Acid Lactic Acid (Sepsi s) Lactate Calcium Magnesium Total Bilirubin AST ALT Alkaline Phosphata se Lactate Dehydrogen ase Troponin T Baselin e Troponin T 120 Min [place] dehe Delta Troponin T Troponin T Hi Sens 6Hr Troponin T Hi Sens 6Hr Delta C-Reactive Protein NT-Pro-B Natriuret Pep Total Protein Albumin Globulin Procalcitonin Urine Color Urine Appearance Urine pH Ur Specific Gravit y Urine Protein Urine Glucose (UA) Urine Ketones Urine Blood Urine Nitrate Urine Bilirubin Urine Urobilinogen Ur Leukocyte Radha ase Urine RBC Urine WBC Ur Squamous Epith Cells Amorphous Sediment Urine Bacteria Influenza Type A A g Influenza Type B A g SARS-CoV-2 Ag (Rap id) 02/03/20 02/03/20 02/03/20 19:34 19:34 19:34 WBC RBC Hgb Hct MCV MCH MCHC RDW Plt Count MPV Neut % (Auto) Lymph % (Auto) [place] % (Auto) Eos % (Auto) Baso % (Auto) Neut # (Auto) Lymph # (Auto) [place] # (Auto) Eos # (Auto) Baso # (Auto) Nucleated RBC % (a uto) Nucleated RBCs # PT INR APTT Fibrinogen D-Dimer Specimen Type Arterial Sample Site Radial, left ABG pH 7.28 L ABG pCO2 55.5 H ABG pO2 84.4 ABG HCO3 26.2 H ABG O2 Saturation ABG Base Excess -1.5 Francisco Javier Test Pos A-a O2 Gradient Hematocrit 41.3 Hgb O2 Saturation Carboxyhemoglobin Methemoglobin Total Hemoglobin Sodium Potassium Glucose Ionized Calcium O2 Delivery Device Bipap Mechanical Rate FiO2 85.0 Tidal Volume PEEP Needle Loom Setter ID Harkr Chloride Carbon Dioxide Anion Gap BUN Creatinine GFR Calculation POC Glucose Calculated Osmolal ity Lactic Acid Lactic Acid (Sepsi s) 2.7 H Lactate Calcium Magnesium Total Bilirubin AST ALT Alkaline Phosphata se Lactate Dehydrogen ase Troponin T Baselin e Troponin T 120 Min [place] dehe Delta Troponin T Troponin T Hi Sens 6Hr Troponin T Hi Sens 6Hr Delta C-Reactive Protein NT-Pro-B Natriuret Pep Total Protein Albumin Globulin Procalcitonin 0.34 Urine Color Urine Appearance Urine pH Ur Specific Gravit y Urine Protein Urine Glucose (UA) Urine Ketones Urine Blood Urine Nitrate Urine Bilirubin Urine Urobilinogen Ur Leukocyte Radha ase Urine RBC Urine WBC Ur Squamous Epith Cells Amorphous Sediment Urine Bacteria Influenza Type A A g Influenza Type B A g SARS-CoV-2 Ag (Rap id) 02/03/20 02/03/20 02/03/20 19:34 18:56 18:56 WBC RBC Hgb Hct MCV MCH MCHC RDW Plt Count MPV Neut % (Auto) Lymph % (Auto) [place] % (Auto) Eos % (Auto) Baso % (Auto) Neut # (Auto) Lymph # (Auto) [place] # (Auto) Eos # (Auto) Baso # (Auto) Nucleated RBC % (a uto) Nucleated RBCs # PT INR APTT Fibrinogen D-Dimer Specimen Type Sample Site ABG pH ABG pCO2 ABG pO2 ABG HCO3 ABG O2 Saturation ABG Base Excess Francisco Javier Test A-a O2 Gradient Hematocrit Hgb O2 Saturation Carboxyhemoglobin Methemoglobin Total Hemoglobin Sodium Potassium Glucose Ionized Calcium O2 Delivery Device Mechanical Rate FiO2 Tidal Volume PEEP Needle Loom Setter ID Chloride Carbon Dioxide Anion Gap BUN Creatinine GFR Calculation POC Glucose Calculated Osmolal ity Lactic Acid Lactic Acid (Sepsi s) Lactate Calcium Magnesium Total Bilirubin AST ALT Alkaline Phosphata se Lactate Dehydrogen ase Troponin T Baselin e Troponin T 120 Min yocha dehe 17.88 H Delta Troponin T -1.12 L Troponin T Hi Sens 6Hr Troponin T Hi Sens 6Hr Delta C-Reactive Protein NT-Pro-B Natriuret Pep Total Protein Albumin Globulin Procalcitonin Urine Color Yellow Urine Appearance Cloudy Urine pH 5 Ur Specific Gravit y 1.020 Urine Protein 1+ H Urine Glucose (UA) Norm Urine Ketones Negative Urine Blood Neg Urine Nitrate Negative Urine Bilirubin Neg Urine Urobilinogen Norm Ur Leukocyte Radha ase 1+ H Urine RBC 0-4 H Urine WBC 25-40 H Ur Squamous Epith Cells 0-4 H Amorphous Sediment 3+ Urine Bacteria 4+ H Influenza Type A A g Negative Influenza Type B A g Negative SARS-CoV-2 Ag (Rap id) 02/03/20 02/03/20 02/03/20 18:56 17:53 17:53 WBC RBC Hgb Hct MCV MCH MCHC RDW Plt Count Cancelled MPV Neut % (Auto) Lymph % (Auto) [place] % (Auto) Eos % (Auto) Baso % (Auto) Neut # (Auto) Lymph # (Auto) [place] # (Auto) Eos # (Auto) Baso # (Auto) Nucleated RBC % (a uto) Nucleated RBCs # PT INR APTT Fibrinogen D-Dimer Specimen Type Sample Site ABG pH ABG pCO2 ABG pO2 ABG HCO3 ABG O2 Saturation ABG Base Excess Francisco Javier Test A-a O2 Gradient Hematocrit Hgb O2 Saturation Carboxyhemoglobin Methemoglobin Total Hemoglobin Sodium Potassium Glucose Ionized Calcium O2 Delivery Device Mechanical Rate FiO2 Tidal Volume PEEP Needle Loom Setter ID Chloride Carbon Dioxide Anion Gap BUN Creatinine GFR Calculation POC Glucose Calculated Osmolal ity Lactic Acid Lactic Acid (Sepsi s) Lactate Calcium Magnesium Total Bilirubin AST ALT Alkaline Phosphata se Lactate Dehydrogen ase Troponin T Baselin e Troponin T 120 Min [place] dehe Delta Troponin T Troponin T Hi Sens 6Hr Troponin T Hi Sens 6Hr Delta C-Reactive Protein NT-Pro-B Natriuret Pep Total Protein Albumin Globulin Procalcitonin 0.33 Urine Color Urine Appearance Urine pH Ur Specific Gravit y Urine Protein Urine Glucose (UA) Urine Ketones Urine Blood Urine Nitrate Urine Bilirubin Urine Urobilinogen Ur Leukocyte Radha ase Urine RBC Urine WBC Ur Squamous Epith Cells Amorphous Sediment Urine Bacteria Influenza Type A A g Influenza Type B A g SARS-CoV-2 Ag (Rap id) Positive H 02/03/20 02/03/20 02/03/20 17:53 17:53 17:53 WBC RBC Hgb Hct MCV MCH MCHC RDW Plt Count MPV Neut % (Auto) Lymph % (Auto) [place] % (Auto) Eos % (Auto) Baso % (Auto) Neut # (Auto) Lymph # (Auto) [place] # (Auto) Eos # (Auto) Baso # (Auto) Nucleated RBC % (a uto) Nucleated RBCs # PT INR APTT Fibrinogen D-Dimer Specimen Type Sample Site ABG pH ABG pCO2 ABG pO2 ABG HCO3 ABG O2 Saturation ABG Base Excess Francisco Javier Test A-a O2 Gradient Hematocrit Hgb O2 Saturation Carboxyhemoglobin Methemoglobin Total Hemoglobin Sodium 136 Potassium 5.2 H Glucose 333 H Ionized Calcium O2 Delivery Device Mechanical Rate FiO2 Tidal Volume PEEP Needle Loom Setter ID Chloride [id number] Carbon Dioxide 22 Anion Gap 21.2 H BUN 53 H Creatinine 2.1 H GFR Calculation 23.9 L POC Glucose Calculated Osmolal ity 309 H Lactic Acid 6.2 H* Lactic Acid (Sepsi s) Lactate Calcium 8.6 Magnesium 2.3 Total Bilirubin 0.2 AST 48 H ALT 35 H Alkaline Phosphata se 85 Lactate Dehydrogen ase Troponin T Baselin e 19 H Troponin T 120 Min [place] dehe Delta Troponin T Troponin T Hi Sens 6Hr Troponin T Hi Sens 6Hr Delta C-Reactive Protein NT-Pro-B Natriuret Pep 383 H Total Protein 7.4 Albumin 3.4 L Globulin 4.0 Procalcitonin Urine Color Urine Appearance Urine pH Ur Specific Gravit y Urine Protein Urine Glucose (UA) Urine Ketones Urine Blood Urine Nitrate Urine Bilirubin Urine Urobilinogen Ur Leukocyte Radha ase Urine RBC Urine WBC Ur Squamous Epith Cells Amorphous Sediment Urine Bacteria Influenza Type A A g Influenza Type B A g SARS-CoV-2 Ag (Rap id) 02/03/20 02/03/20 02/03/20 17:53 17:53 17:50 WBC 9.9 RBC 5.05 Hgb 13.0 Hct 45.4 MCV 89.9 MCH 25.7 L MCHC 28.6 L RDW 18.5 H Plt Count 257 MPV 11.3 H Neut % (Auto) 80.0 Lymph % (Auto) 12.2 [place] % (Auto) 6.9 Eos % (Auto) 0.1 Baso % (Auto) 0.1 Neut # (Auto) 7.94 H Lymph # (Auto) 1.2 [place] # (Auto) 0.7 Eos # (Auto) 0.0 Baso # (Auto) 0.0 Nucleated RBC % (a uto) 0 Nucleated RBCs # 0.0 PT 12.60 INR 0.91 APTT Fibrinogen D-Dimer 3.96 H Specimen Type Arterial Sample Site Radial, right ABG pH 7.28 L ABG pCO2 45.6 H ABG pO2 55.5 L ABG HCO3 21.4 L ABG O2 Saturation 83.7 ABG Base Excess -5.4 L Francisco Javier Test Pos A-a O2 Gradient 78.9 H Hematocrit 41.7 Hgb O2 Saturation 82.5 L Carboxyhemoglobin 0.7 Methemoglobin 0.7 Total Hemoglobin 13.6 Sodium 141.0 Potassium 4.9 Glucose 321.0 H Ionized Calcium 1.1 O2 Delivery Device Nrb Mechanical Rate FiO2 100.0 Tidal Volume PEEP Needle Loom Setter ID [id number] Chloride Carbon Dioxide Anion Gap BUN Creatinine GFR Calculation POC Glucose Calculated Osmolal ity Lactic Acid Lactic Acid (Sepsi s) Lactate Calcium Magnesium Total Bilirubin AST ALT Alkaline Phosphata se Lactate Dehydrogen ase Troponin T Baselin e Troponin T 120 Min [place] dehe Delta Troponin T Troponin T Hi Sens 6Hr Troponin T Hi Sens 6Hr Delta C-Reactive Protein NT-Pro-B Natriuret Pep Total Protein Albumin Globulin Procalcitonin Urine Color Urine Appearance Urine pH Ur Specific Gravit y Urine Protein Urine Glucose (UA) Urine Ketones Urine Blood Urine Nitrate Urine Bilirubin Urine Urobilinogen Ur Leukocyte Radha ase Urine RBC Urine WBC Ur Squamous Epith Cells Amorphous Sediment Urine Bacteria Influenza Type A A g Influenza Type B A g SARS-CoV-2 Ag (Rap id) 02/03/20 00:05 WBC RBC Hgb Hct MCV MCH MCHC RDW Plt Count MPV Neut % (Auto) Lymph % (Auto) [place] % (Auto) Eos % (Auto) Baso % (Auto) Neut # (Auto) Lymph # (Auto) [place] # (Auto) Eos # (Auto) Baso # (Auto) Nucleated RBC % (a uto) Nucleated RBCs # PT INR APTT Fibrinogen D-Dimer Specimen Type Sample Site ABG pH ABG pCO2 ABG pO2 ABG HCO3 ABG O2 Saturation ABG Base Excess Francisco Javier Test A-a O2 Gradient Hematocrit Hgb O2 Saturation Carboxyhemoglobin Methemoglobin Total Hemoglobin Sodium Potassium Glucose Ionized Calcium O2 Delivery Device Mechanical Rate FiO2 Tidal Volume PEEP Needle Loom Setter ID Chloride Carbon Dioxide Anion Gap BUN Creatinine GFR Calculation POC Glucose Calculated Osmolal ity Lactic Acid Lactic Acid (Sepsi s) Lactate Calcium Magnesium Total Bilirubin AST ALT Alkaline Phosphata se Lactate Dehydrogen ase Troponin T Baselin e Troponin T 120 Min [place] dehe Delta Troponin T Troponin T Hi Sens 6Hr 17.56 H Troponin T Hi Sens 6Hr Delta -1.44 L C-Reactive Protein NT-Pro-B Natriuret Pep Total Protein Albumin Globulin Procalcitonin Urine Color Urine Appearance Urine pH Ur Specific Gravit y Urine Protein Urine Glucose (UA) Urine Ketones Urine Blood Urine Nitrate Urine Bilirubin Urine Urobilinogen Ur Leukocyte Radha ase Urine RBC Urine WBC Ur Squamous Epith Cells Amorphous Sediment Urine Bacteria Influenza Type A A g Influenza Type B A g SARS-CoV-2 Ag (Rap id) Vitals: Last Vital Signs Temp 98.7 F 02/04/20 14:00 Pulse 75 02/04/20 16:00 Resp 24 H 02/04/20 12:49 BP 121/81 02/04/20 16:00 Pulse Ox 91 02/04/20 16:00 TS Medications Medications Home Medications albuterol sulfate 1 inh INHALATION QID PRN 02/04/20 [History Confirmed 02/04/20] atorvastatin 40 mg PO DAILY 02/04/20 [History Confirmed 02/04/20] cyclobenzaprine 10 mg PO TID 02/04/20 [History Confirmed 02/04/20] dietary supplement 1 cap PO 02/04/20 [History] gabapentin 100 mg PO TID 02/04/20 [History Confirmed 02/04/20] glimepiride 2 mg PO DAILY 02/04/20 [History Confirmed 02/04/20] lisinopril 20 mg PO DAILY 02/04/20 [History Confirmed 02/04/20] montelukast 10 mg PO DAILY 02/04/20 [History Confirmed 02/04/20] [id number] carb-vit K [Women's Multivitamin] 1 tab PO DAILY 02/04/20 [History Confirmed 02/04/20] potassium chloride 20 meq PO BID 02/04/20 [History Confirmed 02/04/20] sitagliptin [Januvia] 100 mg PO DAILY 02/04/20 [History Confirmed 02/04/20] Active Medications Albuterol/Ipratropium (Duoneb) 3 ml INHALATION Q6H HEATHER Atorvastatin Calcium (Lipitor) 40 mg OG-TUBE DAILY HEATHER Dexamethasone (Decadron) 6 mg IVP Q24H HEATHER Stop: 02/07/20 09:00 Last Admin: 02/04/20 01:43 Dose: 6 mg Documented by: Dextrose (D50w) 25 ml IVP ONCE PRN; Protocol PRN Reason: hypoglycemia protocol Dextrose (D50w) 50 ml IVP PRN PRN; Protocol PRN Reason: hypoglycemia protocol Glucagon (Glucagen) 1 mg IM ONCE PRN; Protocol PRN Reason: Adult Acute Hypoglycemia Prot. Heparin Sodium (Beef Lung) (Heparin) 0 unit IV PRN PRN; Protocol PRN Reason: Heparin weight-base protocol Last Admin: 02/04/20 02:27 Dose: 5,000 unit Documented by: remdesivir (EUA) 100 mg/ (Sodium Chloride) 100 mls @ 100 mls/hr IV Q24H HEATHER Stop: 02/07/20 20:59 Propofol (Diprivan) 1,000 mg in 100 mls @ 0 mls/hr IV .Q0M HEATHER; Protocol Last Admin: 02/04/20 15:51 Dose: 42 mcg/kg/min, 40.1 mls/hr Documented by: Heparin Sodium/Sodium Chloride (Heparin Drip) 25,000 unit in 500 mls @ 0 mls/hr IV .Q0M HEATHER; Protocol Last Admin: 02/04/20 02:28 Dose: 11.32 unit/kg/hr, 36 mls/hr Documented by: Dextrose (D5w) 500 mls @ 100 mls/hr IV ONCE PRN; Protocol PRN Reason: Adult Acute Hypoglycemia Prot Piperacillin Sod/Tazobactam (Sod 3.375 gm/ Sodium Chloride) 50 mls @ 12.5 mls/hr IV Q8H HEATHER; Protocol Last Admin: 02/04/20 12:23 Dose: 12.5 mls/hr Documented by: Linezolid (Zyvox Premix) 600 mg in 300 mls @ 300 mls/hr IV Q12H HEATHER; Protocol Last Admin: 02/04/20 12:35 Dose: 300 mls/hr Documented by: Insulin Aspart (Novolog) 0 unit SUBCUT WM&BEDTIME HEATHER; Protocol Last Admin: 02/04/20 12:16 Dose: 8 unit Documented by: Pantoprazole Sodium (Protonix) 40 mg IVP Q12H HEATHER Last Admin: 02/04/20 12:22 Dose: 40 mg Documented by: Discharge Plan Discharge Patient Disposition: Xfer Short-Term Hosp Condition: Stable Prescriptions: No Action glimepiride 2 mg Tablet 2 mg PO DAILY RF: 0 Januvia 100 mg Tablet 100 mg PO DAILY RF: 0 lisinopril 20 mg Tablet 20 mg PO DAILY RF: 0 cyclobenzaprine 10 mg Tablet 10 mg PO TID RF: 0 atorvastatin 40 mg Tablet 40 mg PO DAILY RF: 0 gabapentin 100 mg Capsule 100 mg PO TID RF: 0 potassium chloride 20 mEq Tablet Extended Release 20 meq PO BID RF: 0 montelukast 10 mg Tablet 10 mg PO DAILY RF: 0 albuterol sulfate 90 mcg/actuation Hfa Aerosol Inhaler 1 inh INHALATION QID PRN (Reason: Shortness Of Breath) RF: 0 Women's Multivitamin 18 mg iron-400 mcg-500 mg Tablet 1 tab PO DAILY RF: 0 dietary supplement Capsule 1 cap PO RF: 0 Discharge Orders: Transfer Out of Facility (Order); Ordered 02/04/20 Ordered By: Reji Patel Transfer Attestations Time Spent in Transfer Care*: greater than 30 min Quality Metrics Clinical Quality Measures: During this hospital stay, did patient experience: None Coding Level of Care Code Acute [employer] for g Fwd Diagnoses COVID-19 determined by clinical diagnostic criteria U07.1 Acute respiratory failure with hypoxia and hypercapnia J96.01; J96.02 On mechanically assisted ventilation Z99.11 JOVITA (acute kidney injury) N17.9 Acute exacerbation of chronic obstructive pulmonary disease (COPD) J44.1
--- NOTE | 2020-02-04 16:12 | PC.NURSE ---
PICCLINE ORDERED, CERTIFIED PERSON HAS DELICATE PATIENTS. UNABLE TO START LINE AT THIS TIME. SOW FARM MANAGER AWARE. PATIENT HAS 3 IV SITES AT THIS TIME.
[2020-02-04] MEDS: heparin drip 25,000 UNIT/500 ML PREMIX 33 UNIT IV (16:31)
[2020-02-04 17:37] LABS: Glucose Point of Care 264 mg/dL (70-110)
[2020-02-04 20:08] LABS: Anion Gap 15.5 (5-19); Blood Urea Nitrogen 45 mg/dL (8-23); Calcium 7.6 mg/dL (8.5-10.5); Carbon Dioxide 25 mmol/L (22-29); Chloride 98 mmol/L (98-107); Glomerular Filtration Rate 32.8 mL/min (90-130); Glucose 253 mg/dL (65-115); Osmolality Calculated 298 mOsm/kg (285-295); Potassium 4.5 mmol/L (3.5-5.1); Sodium 134 mmol/L (136-145)
[2020-02-04 20:32] LABS: Glucose Point of Care 222 mg/dL (70-110)
[2020-02-05] VITALS: BP 112/52; PULSE 78; O2SAT 84
--- NOTE | 2020-02-05 00:15 | PC.NURSE ---
02/03 1951 Transfer center called with accepting physician name and bed for pt at [facility]. 02/[address] Patel notified of pt labs and of acceptance at [facility] by Dr Cotter. No orders received at this time. 02/03 2034 Telephone report given to Andrae Key RN at [facility]. Pt going to [facility] Rm [id number] 02/04 0000 [facility] arrived. 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 Dr Davies, & Pema- rooming house keeper notified. [facility] to be called.
[2020-02-05 00:44] LABS: Partial Thromboplastin Time 115.4 SECONDS (23.9-36.7)
[2020-02-05 01:13] VITALS: BP 112/52; PULSE 78; RESP 25; O2SAT 84
--- NOTE | 2020-02-06 09:27 | PC.RESP ---
PULMONARY REHAB INFORMATION SENT TO PATIENT.
--- NOTE | 2020-02-06 14:33 | PC.SOCIAL ---
Sent culture results to Dr Patel. Provider agreed to send culture results to [facility] since patient was transferred there. Called [facility] and sent both the initial blood cultures showing an ogranism and Urine Culture Result to Attn: Luis/ Bindu to fax [phone]. Verification received that fax was sent successfully.
== END 2020-02-05 01:00 | disposition short-term general hospital (02) | DRG 208 ==
LOC: ER 19:28 → ICU 20:32
PROVIDERS: Admitting Provider Internal Medicine; Emergency Provider Emergency Medicine; Visit Provider Internal Medicine
DX: U07.1 COVID-19 (principal); J12.89 Other viral pneumonia; J96.22 Acute and chronic respiratory failure with hypercapnia; J96.21 Acute and chronic respiratory failure with hypoxia; J44.1 Chronic obstructive pulmonary disease with (acute) exacerbation; I13.0 Hypertensive heart and chronic kidney disease with heart failure and stage 1 through stage 4 chronic kidney disease, or unspecified chronic kidney disease; N17.9 Acute kidney failure, unspecified; E87.2 Acidosis; N39.0 Urinary tract infection, site not specified; Z68.43 Body mass index [BMI] 50.0-59.9, adult; E11.22 Type 2 diabetes mellitus with diabetic chronic kidney disease; N18.9 Chronic kidney disease, unspecified; I50.811 Acute right heart failure; E87.5 Hyperkalemia; Z99.81 Dependence on supplemental oxygen; G47.33 Obstructive sleep apnea (adult) (pediatric); F12.90 Cannabis use, unspecified, uncomplicated; E66.01 Morbid (severe) obesity due to excess calories; Z79.84 Long term (current) use of oral hypoglycemic drugs; Z79.51 Long term (current) use of inhaled steroids
CPT/HCPCS: 12002; 12345; 31500; 36415; 36416; 36600; 51702; 71045; 80048; 80051; 80053; 81001; 82803; 82810; 82962; 83605; 83615; 83735; 83880; 83986; 84145; 84484; 85025; 85378; 85384; 85610; 85730; 86140; 86403; 87040; 87077; 87086; 87186; 87426; 87449; 87804; 93005; 93308; 94002; 94003; 94640; 94660; 94799; 96372; 96375; 99284; 99291; A4570; C9113; J0330; J0610; J1100; J1644; J1815; J1940; J2020; J2060; J2270; J2405; J2543; J2704; J3010; J3490